=== PATIENT | female | born 1960 | race African-American/Black ===

== ENCOUNTER → 2025-03-29 | Day surgery (SDC) | payer MEDICARE ==
[2025-03-17 12:03] LABS: BASOPHILS % 0.6 % (0.0-1.0); EOSINOPHILS % 2.7 % (0.0-6.0); LYMPHOCYTES % 19.9 % (18.0-39.1); MONOCYTES % 9.3 % (4.4-11.3); NEUTROPHILS % 67.3 % (38.7-80.0); RED CELL DISTRIBUTION WIDTH 13.9 % (11.7-14.4)
[2025-03-17 12:28] LABS: EST GLOMERULAR FILTRATION RATE 70.0 ML/MIN (>=60)
[~2025-03-29] MED LIST: ACETAMINOPHEN 1000 MG/100 ML 100 ML IV ONE; ASPIRIN81 MG PO; CRESTOR40 MG PO; FAMOTIDINE 20 MG/2 ML VIAL IV ONE; FEMARA2.5 MG PO; FENTANYL CITRATE/PF 100MCG/2 ML INJ ONE; GABAPENTIN300 MG PO; HYDROCHLOROTHIA25 MG PO; LACTATED RINGER'S 1,000 ML ONE; LIDOCAINE HCL 2% LOCAL INJ 5 ML SDV VIAL INJ ONE; LINZESS145 MCG PO; LOSARTAN POTASS25 MG PO; MIDAZOLAM HCL 2 MG/2 ML VIAL ONE; MULTI-VITAMIN1 EACH PO; ONDANSETRON HCL INJ 2MG/ML 2ML 2 MG/ML VIAL ONE; PANTOPRAZOLE SO40 MG PO; PROPOFOL IV EMULSION 10 MG/ML 20 ML VIAL ONE; SEVOFLURANE INHAL SOLN 250 ML PEN BTL ONE; TRULICITY3 MG/0.5 M INJ; ULTRAM 50MG50 MG PO; VEOZAH45 MG PO; VITAMIN D3 PO; ZOLEDRONIC ACID4 MG IV; ZYRTEC10 M3 PO
[2025-03-29] MEDS: HYDROMORPHONE 1MG/1ML INJ ONE (14:15)
[2025-03-29] MEDS: HYDROCODONE/APAP 7.5MG-325MG 1 EA TAB ONE (14:35)
[2025-03-29 15:40] VITALS: BP 143/75; PULSE 61; RESP 18; O2SAT 96
== END | disposition home or self-care (01) ==
LOC: OR 11:05
PROVIDERS: ATTEND Specialist
DX: M23.232 Derangement of other medial meniscus due to old tear or injury, left knee (principal); M94.262 Chondromalacia, left knee; C50.912 Malignant neoplasm of unspecified site of left female breast; I10 Essential (primary) hypertension; E78.5 Hyperlipidemia, unspecified; Z88.2 Allergy status to sulfonamides; Z91.041 Radiographic dye allergy status; Z71.82 Exercise counseling; Z01.810 Encounter for preprocedural cardiovascular examination; Z01.812 Encounter for preprocedural laboratory examination; Z01.818 Encounter for other preprocedural examination; Z79.82 Long term (current) use of aspirin; Z79.85 Long-term (current) use of injectable non-insulin antidiabetic drugs; Z79.899 Other long term (current) drug therapy; Z68.35 Body mass index [BMI] 35.0-35.9, adult; Z71.3 Dietary counseling and surveillance; Z87.891 Personal history of nicotine dependence
CPT/HCPCS: 29881; 36415; 71046; 80048; 85025; 93005; J0131; J0690; J1171; J1308; J2003; J2405; J2704; J3010; J7121; J2250